=== PATIENT | female | born 1990 | race Caucasian/White ===

== ENCOUNTER → 2021-04-11 | Outpatient (CLI) | payer MEDICAID ==
[~2021-04-11] MED LIST: IBUP-2030 PO
== END | disposition home or self-care (01) ==
LOC: LAB 08:57
PROVIDERS: ATTEND Obstetrics & Gynecology
DX: Z01.812 Encounter for preprocedural laboratory examination (principal); Z20.822 Contact with and (suspected) exposure to COVID-19
CPT/HCPCS: 87426

== ENCOUNTER 2021-04-16 08:29 | Inpatient (IN) | payer MEDICAID ==
[~2021-04-16] VITALS: Ht 147.3 cm; Wt 64.4 kg
[2021-04-16] MEDS ORDERED: LACTATED RINGERS 1,000 ML IV SCH (09:30)
[2021-04-16] MEDS ORDERED: DEXT 5%/LR + PITOCIN 20UNITS/L 1,000 ML IV SCH ×3 (09:30→19:45)
[2021-04-16] MEDS: LACTATED RINGERS 1,000 ML IV SCH ×2 (10:18→16:50)
[2021-04-16 11:11] LABS: BASOPHILS % 0.3 % (0.0-2.0); EOSINOPHILS % 0.5 % (0.0-5.0); HEMATOCRIT. 36.1 % (36.0-48.0); HEMOGLOBIN. 12.5 g/dL (12.0-16.0); MEAN CORPUSCULAR HEMOGLOBIN 28.9 pg (28.0-32.0); MEAN CORPUSCULAR VOLUME 83.2 fL (81.0-99.0); MEAN PLATELET VOLUME 12.3 fl (7.4-10.4); MONOCYTES % 5.3 % (2.0-8.0); NEUTROPHILS % 67.9 % (40.0-76.0); PLATELET 96 x1000/uL (130-400); RED BLOOD CELL COUNT 4.34 mill/uL (4.2-5.4); RED CELL DISTRIBUTION WIDTH 16.8 % (11.6-14.6)
[2021-04-16 11:13] LABS: CLARITY URINE CLEAR (CLEAR); COLOR URINE YELLOW (YELLOW); KETONES URINE 1+ (NEGATIVE); LEUKOCYTE ESTERASE URINE TRACE (NEGATIVE); NITRITE URINE NEGATIVE (NEGATIVE); OCCULT BLOOD URINE NEGATIVE (NEGATIVE); PH URINE 7.5 (4.5-8.0); PROTEIN URINE NEGATIVE (NEGATIVE); SPECIFIC GRAVITY URINE 1.022 (1.005-1.030)
[2021-04-16 11:21] LABS: INR 0.9; PARTIAL THROMBOPLASTIN TIME 30.9 sec (23.4-31.0); PROTHROMBIN TIME 9.8 sec (9.6-11.0)
[2021-04-16] MEDS ORDERED: CITRIC ACID/SODIUM CITRATE SOLN 30ML UDC PO NR (11:30)
[2021-04-16 12:01] LABS: *AMPHETAMINES SCREEN URINE NEGATIVE (NEGATIVE); *BARBITURATES SCREEN URINE NEGATIVE (NEGATIVE); *BENZODIAZEPINES SCREEN URINE NEGATIVE (NEGATIVE); *COCAINE SCREEN URINE NEGATIVE (NEGATIVE); METHADONE URINE SCREEN NEGATIVE (NEGATIVE); OPIATES URINE SCREEN NEGATIVE (NEGATIVE)
[2021-04-16 12:02] LABS: CANNABINOID URINE SCREEN NEGATIVE (NEGATIVE); PHENCYCLIDINE URINE SCREEN NEGATIVE (NEGATIVE)
[2021-04-16] MEDS ORDERED: FENTANYL CITRATE/PF 50MCG/ML 2ML VIAL ONE (17:44)
[2021-04-16] MEDS ORDERED: ONDANSETRON HCL 4MG/2ML INJ ONE (17:44)
[2021-04-16] MEDS ORDERED: CEFAZOLIN SODIUM 1000MG/VIAL ONE (17:44)
[2021-04-16] MEDS ORDERED: OXYTOCIN 10 UNITS/ML 1ML ONE (17:44)
[2021-04-16] MEDS ORDERED: DIPHENHYDRAMINE 50MG/ML VIAL ONE (18:25)
[2021-04-16] MEDS ORDERED: KETOROLAC 60MG/2ML VIAL IM ONE (18:25)
[2021-04-16] MEDS ORDERED: NALOXONE HCL 0.4 MG/ML 1ML VIAL IV PRN (18:30)
[2021-04-16] MEDS ORDERED: DIPHENHYDRAMINE 50MG/ML VIAL IV PRN (18:30)
[2021-04-16] MEDS ORDERED: BUTORPHANOL TARTRATE 2 MG/ML VIAL IV PRN (18:30)
[2021-04-16] MEDS ORDERED: KETOROLAC 30MG/ML VIAL IV SCH (18:30)
[2021-04-16] MEDS ORDERED: BISACODYL 10MG SUPP PR PRN ×2 (18:45→19:45)
[2021-04-16] MEDS ORDERED: LANOLIN OINT 7GM TUBE TOP PRN ×2 (18:45→19:45)
[2021-04-16] MEDS ORDERED: ONDANSETRON HCL 4MG/2ML INJ IV PRN ×2 (18:45→19:45)
[2021-04-16] MEDS ORDERED: HEMORRHOIDAL SUPP PR PRN ×2 (18:45→19:45)
[2021-04-16] MEDS ORDERED: IBUPROFEN 400MG TABLET PO PRN ×2 (18:45→19:45)
[2021-04-16] MEDS ORDERED: OXYCODONE HCL/ACETAMINOPHEN 5/325MG TABLET PO PRN (18:45)
[2021-04-16] MEDS ORDERED: NALOXONE HCL 0.4MG/ML VIAL IV PRN (19:00)
[2021-04-16] MEDS ORDERED: ACETAMINOPHEN WITH CODEINE 300/30MG TABLET PO PRN (19:45)
[2021-04-16] MEDS ORDERED: HYDROCODONE/ACETAMINOPHEN 5/325MG TABLET PO PRN (19:45)
[2021-04-16] MEDS ORDERED: DIPHENHYDRAMINE 25MG CAPSULE PO PRN (19:45)
[2021-04-16] MEDS ORDERED: RHO(D) IMMUNE GLOBULIN 300 MCG/SYR IM PRN (19:45)
[2021-04-16] MEDS ORDERED: DOCUSATE SODIUM 100MG CAPSULE PO SCH ×2 (21:00)
[2021-04-16 22:30] VITALS: BP 114/78
[2021-04-16 23:00] VITALS: BP 105/67
[2021-04-16 23:30] VITALS: BP 121/73
[2021-04-17 04:05] VITALS: BP 99/55
[2021-04-17] MEDS ORDERED: FERROUS SULFATE 325MG TABLET PO SCH (07:30)
[2021-04-17 07:41] LABS: BASOPHILS % 0.3 % (0.0-2.0); EOSINOPHILS % 1.1 % (0.0-5.0); HEMATOCRIT. 36.2 % (36.0-48.0); HEMOGLOBIN. 11.9 g/dL (12.0-16.0); LYMPHOCYTES % 22.4 % (20.0-50.0); MEAN CORPUSCULAR HEMOGLOBIN 28.3 pg (28.0-32.0); MEAN CORPUSCULAR VOLUME 86.1 fL (81.0-99.0); MONOCYTES % 5.5 % (2.0-8.0); NEUTROPHILS % 70.7 % (40.0-76.0); PLATELET 102 x1000/uL (130-400); RED CELL DISTRIBUTION WIDTH 16.5 % (11.6-14.6)
[2021-04-17 08:00] VITALS: BP 98/54
[2021-04-17] MEDS ORDERED: PRENATAL VIT/FE FUMARATE/FA TABLET PO SCH (09:00)
[2021-04-17] MEDS: MAGNESIUM/ALUMINUM HYDROXIDE/SIMETHICONE 30ML UDC PO SCH ×5 (09:00→20:43)
[2021-04-17] MEDS: KETOROLAC 30MG/ML VIAL IV SCH ×2 (11:23→17:04)
[2021-04-17] MEDS: SIMETHICONE 80MG TABLET CHEW PO SCH ×3 (11:24→17:05)
[2021-04-17] MEDS: PRENATAL VIT/FE FUMARATE/FA TABLET PO SCH (11:25)
[2021-04-17 12:00] VITALS: BP 99/65
[2021-04-17 16:00] VITALS: BP 100/50
[2021-04-17 19:15] VITALS: BP 110/69
[2021-04-18] MEDS: MAGNESIUM/ALUMINUM HYDROXIDE/SIMETHICONE 30ML UDC PO SCH ×2 (00:15→13:11)
[2021-04-18] MEDS: SIMETHICONE 80MG TABLET CHEW PO SCH ×4 (00:17→20:44)
[2021-04-18] MEDS: IBUPROFEN 800MG TABLET PO PRN ×2 (00:18→09:13)
[2021-04-18 00:20] VITALS: BP 128/85
[2021-04-18 03:57] VITALS: BP 124/80
[2021-04-18 08:00] VITALS: BP 112/55
[2021-04-18] MEDS: FERROUS SULFATE 325MG TABLET PO SCH (09:12)
[2021-04-18 16:00] VITALS: BP 103/62
[2021-04-18 22:00] VITALS: BP_SYST 113; BP_SYST 3; BP_DIAS 69
[2021-04-19] MEDS: IBUPROFEN 800MG TABLET PO PRN (04:43)
[2021-04-19 05:25] VITALS: BP 115/75
[2021-04-19 07:30] VITALS: BP 117/72
[2021-04-19] MEDS: MAGNESIUM/ALUMINUM HYDROXIDE/SIMETHICONE 30ML UDC PO SCH (08:35)
[2021-04-19] MEDS: FERROUS SULFATE 325MG TABLET PO SCH (08:35)
[2021-04-19] MEDS: SIMETHICONE 80MG TABLET CHEW PO SCH (08:36)
[2021-04-19] MEDS: PRENATAL VIT/FE FUMARATE/FA TABLET PO SCH (08:36)
[2021-04-19] MEDS ORDERED: IBUP-2030 PO (08:53)
== END 2021-04-19 11:00 | disposition home or self-care (01) | DRG 540 ==
LOC: 8 EST LDRP 08:29 → OBSVTOIN 08:29 → 8 EST LDRP 09:56 → 8EST 22:21
PROVIDERS: ADMIT Obstetrics & Gynecology; ATTEND Obstetrics & Gynecology
PROC: 10D00Z1 Extraction of Products of Conception, Low, Open Approach (ICD-10-PCS; principal; 2021-04-16)
DX: O34.211 Maternal care for low transverse scar from previous cesarean delivery (principal); Z37.0 Single live birth; Z3A.39 39 weeks gestation of pregnancy
CPT/HCPCS: 36415; 80305; 81003; 85025; 86592; 86703; 86850; 86900; 86920; 88307; G0378; J0690; J1200; J1885; J2405; J2590; J3010; J7120